=== PATIENT | female | born 1955 | race Hispanic/Latino ===

== ENCOUNTER 2021-11-28 02:22 | Emergency (ER) | payer BC ==
--- OUTSIDE RECORDS SUMMARY | 2021-11-28 02:25 | XMS REPORT | Continuity of Care Document ---
:1955 Author Organization [facility] t Address [facility] [place] [address] Care Team Providers Name Role Phone Evelyne SALMERON Primary Care Physician Unavailable JOSH_Thuy Attending Clinician Unavailable Josh Attending Clinician [phone] Dejah SAENZ Attending Clinician Unavailable JOSH_S Admitting Clinician Unavailable Payers Payer Name Policy Type Policy Number Effective Date Expiration Date S [place] [id number] 2020 00:[place]00 [place] [id number] 2017 00:00:00 Problems This patient has no known problems. Allergies, Adverse Reactions, Alerts Allergy Allergy Status Severity Reaction(s) Onset Inactive Treating Comm ents Source Name Type Date Date Clinician CODEINE DRUG Active N/V 2018-0 [facility] INGREDI 2-19 ity of 00:00: [place] 00 [facility] SULFA Drug Active HYPERTENSION 0 Univ ers (SULFONA Class 2-19 ity of MIDE 00:00: [place] ANTIBIOT 00 Medical ICS) Branch Medications This patient has no known medications. Procedures This patient has no known procedures. Encounters Start End Encounter Admission Attending Care Care Encounter Source Date/Time Date/Time Type Type Clinicians Facility Department ID 2021-10-06 2021-10-06 Outpatient [facility] [id number] [place] 10:30:00 10:30:[facility] 2021-09-07 2021-09-07 Outpatient EDU[facility] [id number] [place] 02:11:00 02:11:00 0329 [facility] 2021-09-07 2021-09-07 Outpatient Josh [facility] [id number] 00:00:00 00:00:00 [place] [id number] 2021-09-06 2021-09-06 Outpatient [facility] [id number] [place] 09:57:00 09:57:00 0328 [facility] 2021-06-02 2021-06-02 Outpatient [facility] 2020 [place] 12:30:00 12:30:00 1222 [facility] 2020-12-17 2020-12-17 Outpatient [facility] [id number] [place] 10:34:00 10:34:00 0708 [facility] 2020-12-17 2020-12-17 Outpatient Kathleen, [facility] [id number] 00:00:00 00:00:00 [place] [id number] 2020-12-17 2020-12-17 Outpatient Kathleen, [facility] [id number] [id number] 00:00:00 00:00:00 [place] [id number] 2020-12-17 2020-12-17 Outpatient Kathleen, [facility] [id number] [id number] 00:00:00 00:00:00 [place] [id number] 2020-12-15 2020-12-15 Outpatient [facility] [id number] [place] 12:55:00 12:55:00 0706 [facility] 2020-08-29 2020-08-29 Outpatient Reema SAENZ, [facility] [id number] [facility] 15:10:00 15:10:00 [facility] 2020-08-08 2020-08-08 Outpatient [facility] [id number] [facility] 14:25:00 14:25:00 [facility] Results This patient has no known results.
[2021-11-28] MEDS ORDERED: LIDOCAINE VISCOUS 2% SOLN 15 ML UDC ONE (02:39)
[2021-11-28] MEDS ORDERED: ONDANSETRON 4 MG/2 ML VIAL ONE (02:39)
[2021-11-28] MEDS ORDERED: MAGNES/ALUMIN/SIMET 30ML UCUP ONE (02:39)
[2021-11-28] MEDS ORDERED: FAMOTIDINE 20 MG/2 ML VIAL IV ONE (02:39)
[2021-11-28 02:46] LABS: Absolute Lymphocytes (CBC) 3.8 K/uL (0.7-4.9); Hematocrit 43.5 % (36.0-45.0); Lymphocytes % 31.7 % (15.3-44.8); MPV 9.2 fL (7.6-11.3); RBC Red Blood Cell Count 4.56 M/uL (3.86-4.86)
[2021-11-28 03:03] LABS: Albumin 3.8 g/dL (3.4-5.0); Bilirubin Total 0.4 mg/dL (0.2-1.0); Potassium 3.5 mmol/L (3.5-5.1)
--- NOTE | 2021-11-28 05:25 | ER ---
Nurse's Notes [facility] Name: Neris Riley Age: 66 yrs Sex: Female : 1955 Arrival Date: 11/28/2021 Time: 02:28 Bed 8 Private MD: Diagnosis: Acute gastritis without bleeding Presentation: 11/28 02:29 Chief complaint: Patient states: "I'm just have pain stomach pain that started as6 yesterday afternoon. I feels like right here (epigastric region) is in a knot all balled up" EMS states: toned out for abdominal pain. Coronavirus screen: At this time, the client does not indicate any symptoms associated with coronavirus-19. Ebola Screen: No symptoms or risks identified at this time. Initial Sepsis Screen: Does the patient meet any 2 criteria? No. Patient's initial sepsis screen is negative. Does the patient have a suspected source of infection? No. Patient's initial sepsis screen is negative. Risk Assessment: Do you want to hurt yourself or someone else? Patient reports no desire to harm self or others. Onset of symptoms was November 27, 2021. Care prior to arrival: Medication(s) given: Toradol 15mg IV initiated. 20 GA, in the right antecubital area. 02:29 Method Of Arrival: EMS: [facility] as6 02:29 Acuity: AMINA 3 as6 Historical: - Allergies: 02:32 Sulfa (Sulfonamide Antibiotics); as6 - Home Meds: 02:32 levothyroxine 150 mcg tab 1 tab once daily [Active]; Metformin Oral [Active]; as6 Wellbutrin Oral [Active]; - PMHx: 02:32 Diabetes mellitus; Hypothyroidism; as6 - PSHx: 02:32 Cholecystectomy; as6 - Immunization history:: Client reports receiving the 2nd dose of the Covid vaccine, pfizer. - Social history:: Smoking status: Patient reports the use of cigarette tobacco products, smokes one-half pack cigarettes per day. - Family history:: not pertinent. - Hospitalizations: : No recent hospitalization is reported. Screenin:33 Abuse screen: Denies threats or abuse. Denies injuries from another. Nutritional as6 screening: No deficits noted. Tuberculosis screening: No symptoms or risk factors identified. Fall Risk None identified. Assessment: 02:30 General: Appears in no apparent distress. Behavior is calm, cooperative. Pain: as6 Complains of pain in epigastric area Quality of pain is described as pinching. Neuro: [place] Agitation-Sedation Scale (RASS): 0 - Alert and Calm Level of Consciousness is awake, alert, obeys commands, Oriented to person, place, time, situation. Respiratory: Respiratory effort is even, unlabored. GI: Reports upper abdominal pain. Vital Signs: 02:29 BP 136 / 73; Pulse 68; Resp 18 S; Temp 98.3(O); Pulse Ox 100% on R/A; Weight 65.77 kg as6 (R); Height 5 ft. 4 in. (162.56 cm) (R); Pain 5/10; 04:34 BP 111 / 79; Pulse 66; Resp 18 S; Pulse Ox 96% on R/A; as6 05:08 BP 106 / 73; Pulse 57; Resp 19; Pulse Ox 94% on R/A; kd3 02:29 Body Mass Index 24.89 (65.77 kg, 162.56 cm) as6 ED Course: 02:28 Patient arrived in ED. kd3 02:28 Manuel Aguilera MD is Attending Physician. rn 02:29 Lucho Bryant RN is Primary Nurse. as6 02:32 Triage completed. as6 02:32 Arm band placed on. as6 02:33 Bed in low position. Call light in reach. Side rails up X2. Adult w/ patient. Pulse ox as6 on. NIBP on. 02:43 Maintain EMS IV. Dressing intact. Good blood return noted. Site clean \\T\\ dry. Gauge \\T\\ as 6 site: 20g RAC. 03:35 CT Abd/Pelvis - IV Contrast Only In Process Unspecified. EDMS 05:24 Yosi Brandt MD is Referral Physician. rn 05:37 No provider procedures requiring assistance completed. IV discontinued, intact, as6 bleeding controlled, No redness/swelling at site. Pressure dressing applied. Administered Medications: 02:43 Drug: Pepcid (famotidine) 20 mg Route: IVP; Site: right antecubital; as6 05:36 Follow up: Response: No adverse reaction as6 02:43 Drug: Zofran (Ondansetron) 4 mg Route: IVP; Site: right antecubital; as6 05:37 Follow up: Response: No adverse reaction as6 02:43 Drug: GI Cocktail without - (Maalox Suspension 30 ml, Lidocaine Liquid 2 % 15 as6 ml) Route: PO; 05:36 Follow up: Response: No adverse reaction as6 05:24 Drug: ProTONIX (pantoprazole) 40 mg Route: PO; as6 05:36 Follow up: Response: No adverse reaction as6 Medication: 05:08 VIS not applicable for this client. kd3 Outcome: 05:24 Discharge ordered by . rn 05:37 Discharged to home via wheelchair, with family. as6 05:37 Condition: stable 05:37 Discharge instructions given to patient, significant other, Instructed on discharge instructions, follow up and referral plans. medication usage, Demonstrated understanding of instructions, follow-up care, medications, Prescriptions given X 1. 05:37 Patient left the ED. as6 Signatures: Dispatcher [employer] EDMS Manuel Aguilera MD MD rn Slawson, Ashby, RN RN as6 Aliza Lomax RN RN kd3
--- NOTE | 2021-11-28 05:25 | EDPHYS ---
Physician Documentation [facility] Name: Neris Riley Age: 66 yrs Sex: Female : 1955 Arrival Date: 11/28/2021 Time: 02:28 Bed 8 Private MD: ED Physician Manuel Aguilera HPI: 11/28 05:21 This 66 yrs old Female presents to ER via EMS with complaints of Abdominal rn Pain. 05:21 The patient presents with abdominal pain in the epigastric area. Onset: The rn symptoms/episode began/occurred just prior to arrival. The symptoms do not radiate. Associated signs and symptoms: Pertinent positives: nausea, Pertinent negatives: anorexia, blood in stools, chest pain, diarrhea, fever. The symptoms are described as achy, crampy. Modifying factors: The symptoms are alleviated by nothing, the symptoms are aggravated by nothing. Severity of pain: At its worst the pain was moderate in the emergency department the pain is unchanged. The patient has not experienced similar symptoms in the past. The patient has not recently seen a physician. Pt reports abd pain, epigastric, has hx of hiatal hernia and cholecystectomy. No trauma. No vomiting. NO diarrhea. No blood in stool. No fever. . Historical: - Allergies: 02:32 Sulfa (Sulfonamide Antibiotics); as6 - Home Meds: 02:32 levothyroxine 150 mcg tab 1 tab once daily [Active]; Metformin Oral [Active]; as6 Wellbutrin Oral [Active]; - PMHx: 02:32 Diabetes mellitus; Hypothyroidism; as6 - PSHx: 02:32 Cholecystectomy; as6 - Immunization history:: Client reports receiving the 2nd dose of the Covid vaccine, pfizer. - Social history:: Smoking status: Patient reports the use of cigarette tobacco products, smokes one-half pack cigarettes per day. - Family history:: not pertinent. - Hospitalizations: : No recent hospitalization is reported. ROS: 05:21 Constitutional: Negative for fever, chills, and weight loss, Eyes: Negative for injury, rn pain, redness, and discharge, Cardiovascular: Negative for chest pain, palpitations, and edema, Respiratory: Negative for shortness of breath, cough, wheezing, and pleuritic chest pain, Abdomen/GI: + upper abd pain Back: Negative for injury and pain, : Negative for injury, bleeding, discharge, and swelling, MS/Extremity: Negative for injury and deformity, Skin: Negative for injury, rash, and discoloration, Neuro: Negative for headache, weakness, numbness, tingling, and seizure. Exam: 05:22 Constitutional: This is a well developed, well nourished patient who is awake, alert, rn appears uncomfortable Head/Face: Normocephalic, atraumatic. Cardiovascular: Regular rate and rhythm. No pulse deficits. Respiratory: No increased work of breathing, no retractions or nasal flaring. Abdomen/GI: soft, + epigastric tenderness, no rebound or masses Skin: Warm, dry with normal turgor. Normal color with no rashes, no lesions, and no evidence of cellulitis. MS/ Extremity: Pulses equal, no cyanosis. Neurovascular intact. Full, normal range of motion. Equal circumference. Neuro: Awake and alert, GCS 15 Vital Signs: 02:29 BP 136 / 73; Pulse 68; Resp 18 S; Temp 98.3(O); Pulse Ox 100% on R/A; Weight 65.77 kg as6 (R); Height 5 ft. 4 in. (162.56 cm) (R); Pain 5/10; 04:34 BP 111 / 79; Pulse 66; Resp 18 S; Pulse Ox 96% on R/A; as6 05:08 BP 106 / 73; Pulse 57; Resp 19; Pulse Ox 94% on R/A; kd3 02:29 Body Mass Index 24.89 (65.77 kg, 162.56 cm) as6 MDM: 02:28 Patient medically screened. rn 05:22 Differential diagnosis: appendicitis, bowel obstruction, diverticulitis, gastritis, rn gastroesophageal reflux disease, non-specific abd pain, pancreatitis, Peptic Ulcer Disease. Data reviewed: vital signs, nurses notes, lab test result(s), radiologic studies, CT scan, and as a result, I will discharge patient. Counseling: I had a detailed discussion with the patient and/or guardian regarding: the historical points, exam findings, and any diagnostic results supporting the discharge/admit diagnosis, lab results, radiology results, the need for outpatient follow up, to return to the emergency department if symptoms worsen or persist or if there are any questions or concerns that arise at home. Response to treatment: the patient's symptoms have resolved after treatment, the patient is now symptom free, and as a result, I will discharge patient. Special discussion: Based on the patient's Hx, exam, and Dx evaluation, there is no indication for emergent surgery or inpatient Tx. It is understood by the patient/guardian that if the Sx's persist or worsen they need to return immediately for re-evaluation. I discussed with the patient/guardian in detail that at this point there is no indication for admission to the hospital. It is understood, however, that if the symptoms persist or worsen the patient needs to return immediately for re-evaluation. Based on the history and exam findings, there is no indication for further emergent testing or inpatient evaluation. I discussed with the patient/guardian the need to see the grades 9 12 tutor for further evaluation of the symptoms. ED course: No acute findings on CT, pt sleeping and pain free, will dc home as likely GERD/gastritis given hx of hiatal hernia, not taking antacids regularly, and seems triggered by turkmen food. . 11/28 02:29 Order name: CBC with Diff; Complete Time: 03:16 11/28 02:29 Order name: CMP; Complete Time: 03:16 rn 11/28 02:29 Order name: Lipase; Complete Time: 03:16 11/28 02:29 Order name: CT Abd/Pelvis - IV Contrast Only rn 11/28 02:29 Order name: IV Saline Lock; Complete Time: 02:34 rn 11/28 02:29 Order name: Labs collected and sent; Complete Time: 02:42 11/28 02:29 Order name: EKG; Complete Time: 02:30 rn 11/28 02:29 Order name: EKG - Nurse/Tech; Complete Time: 02:42 rn Administered Medications: 02:43 Drug: Pepcid (famotidine) 20 mg Route: IVP; Site: right antecubital; as6 05:36 Follow up: Response: No adverse reaction as6 02:43 Drug: Zofran (Ondansetron) 4 mg Route: IVP; Site: right antecubital; as6 05:37 Follow up: Response: No adverse reaction as6 02:43 Drug: GI Cocktail without - (Maalox Suspension 30 ml, Lidocaine Liquid 2 % 15 as6 ml) Route: PO; 05:36 Follow up: Response: No adverse reaction as6 05:24 Drug: ProTONIX (pantoprazole) 40 mg Route: PO; as6 05:36 Follow up: Response: No adverse reaction as6 Disposition Summary: 11/28/21 05:24 Discharge Ordered Location: Home rn Problem: new rn Symptoms: have improved rn Condition: Stable rn Diagnosis - Acute gastritis without bleeding rn Followup: rn - With: Yosi Brandt MD - When: As needed - Reason: Recheck today's complaints, Re-evaluation by your physician Discharge Instructions: - Discharge Summary Sheet rn - Gastritis, Adult rn Forms: - Medication Reconciliation Form rn - Thank You Letter rn - Antibiotic pattern weaver - Prescription Opioid Use rn Prescriptions: - Protonix 40 mg Oral Tablet - take 1 tablet by ORAL route once daily; 30 tablet; Refills: 0, Product rn Selection Permitted Signatures: Dispatcher [employer] Manuel Howard MD MD rn Slawson, Ashby, RN RN as6
[2021-11-28] MEDS ORDERED: PANTOPRAZOLE 40MG TABLET PO ONE (05:28)
[2021-11-28 05:43] VITALS: TEMP 98.3
[2021-11-28 05:49] VITALS: BP 106/73; O2SAT 94
--- NOTE | 2021-11-29 11:52 | EKG ---
Test Date: 2021-11-28 Test Time: 02:37:20 Radio Communications Superintendent: MEASUREMENT RESULTS: Intervals: Rate: 59 ND: 190 QRSD: 76 QT: 458 QTc: 453 [place]: P: 70 ND: 190 QRS: 101 T: 57 INTERPRETIVE STATEMENTS: Sinus bradycardia Rightward axis Nonspecific T wave abnormality Abnormal ECG No previous ECG available for comparison Electronically Signed On 11-29-21 11:50:14 CDT by Milo Cardoza
--- NOTE | 2021-11-29 13:48 | RAD REPORT ---
EXAM DESCRIPTION: CT - Abdomen Pelvis W Contrast - 11/28/2021 6:51 am CLINICAL HISTORY: The patient is 66 years old and is Female; Abdominal pain, acute, nonlocalized TECHNIQUE: Axial computed tomography images of the abdomen and pelvis with intravenous contrast. S agittal and coronal reformatted images were created and reviewed. This CT exam was performed using one or more of the following dose reduction techniques: automated exposure control, adjustment of t he mA and/or kV according to patient size, and/or use of iterative reconstruction technique. COMPARISON: No relevant prior studies available. FINDINGS: Lung bases: Unremarkable. No mass. No consolidation. ABDOMEN: Liver: Unremarkable. No mass. Gallbladder and bile ducts: Gallbladder is surgically absent. There is mild intrahepatic biliary dilatation. Common bile duct measures up to 10 mm in diam eter. Findings are likely related to prior cholecystectomy. Pancreas: Unremarkable. No mass. No ductal dilation. Spleen: Unremarkable. No splenomegaly. Adrenals: Unremarkable. No mass. Kidneys and ureters: Unremarkable. No solid mass. No hydronephrosis. Stomach and bowel: Scattered colonic diverticula. No obstruction. No mucosal thickening. PELVIS: Appendix: The appendix is normal. Bladder: Unremarkable. No mass. Reproductive: Linear metallic densities in the adnexa likely related to tubal ligation. ABDOMEN and PELVIS: Intraperitoneal space: Unremarkable. No free air. No significant fluid collection. Bones/joints: Disc space narrowing with degenerative endplate changes in the spine. No acute fracture. No dislocation. Soft tissues: Unremarkable. Vasculature: Scattered atherosclerotic vascular calcifications. No abdominal aortic aneurysm. Lymph nodes: Unremarkable. No enlarged lymph nodes. IMPRESSION: No acute finding in the abdomen/pelvis. Electronically signed by: Gabriel Hurst MD 11/28/2021 4:52 AM CDT Due to temporary technical issues with the PACS/Fluency reporting system, reports are being signed by the in house radiologist without review as a courtesy to ensure prompt reporting. The interpreting r adiologist is fully responsible for the content of the report.
== END 2021-11-28 05:37 | disposition home or self-care (01) ==
LOC: ER 02:22
DX: K29.00 Acute gastritis without bleeding (principal); E11.9 Type 2 diabetes mellitus without complications; E03.9 Hypothyroidism, unspecified; F17.210 Nicotine dependence, cigarettes, uncomplicated; Z88.2 Allergy status to sulfonamides
CPT/HCPCS: 93005; 85025; 36415; 83690; 80053; 74177; 96375; 96374; 99284; Q9967; J2405; J3490